=== PATIENT | male | born 1980 | race Asian ===

== ENCOUNTER 2019-01-23 07:03 | Emergency (ER) | payer SELFPAY ==
[~2019-01-23 07:03] MED LIST: ALBU0.0912 INH; OLAN15TA1 PO
--- NOTE | 2019-01-23 07:10 | NUR ---
PT CALLED FOR TRIAGE. PT STATES "I WANT TO SMOKE A CIGARETTE FIRST." PT DOES NOT WANT TO COME INTO EMERGENCY DEPARTMENT.
--- NOTE | 2019-01-23 07:28 | NUR ---
PT SITTING OUTSIDE ED LOBBY SMOKING. SPOKE TO PATIENT, PT DOES NOT WISH TO BE TRIAGED. STATES HE WANTS TO SEE A DOCTOR "JUST NOT YET."
--- NOTE | 2019-01-23 07:41 | NUR ---
SPOKE WITH PATIENT, PT DOES NOT WISH TO SEE A DOCTOR ANYMORE. I ADVISED PATIENT IF HE CHANGES HIS MIND HE IS MORE THAN WELCOME TO SIGN IN AGAIN. PT VERBALIZED UNDERSTANDING. PATIENT LEFT WITHOUT BEING SEEN BY DR. PEREIRA. NO FURTHER CARE PROVIDED FOR PATIENT.
== END 2019-01-23 07:41 | disposition left against medical advice (07) ==
LOC: MED 07:03
DX: Z76.0 Encounter for issue of repeat prescription (principal); Z53.21 Procedure and treatment not carried out due to patient leaving prior to being seen by health care provider